=== PATIENT | female | born 1950 | race Caucasian/White ===

== ENCOUNTER 2021-11-24 21:52 | Emergency (ER) | payer MEDICARE, OTHER | END 2021-11-24 23:20 | disposition home or self-care (01) | LOC: FB.ED 21:52 | DX: S60.212A Contusion of left wrist, initial encounter (principal); W01.0XXA Fall on same level from slipping, tripping and stumbling without subsequent striking against object, initial encounter | CPT/HCPCS: 29125; 73110-LT; 99282; 99283-25 ==